=== PATIENT | male | born 1985 ===

== ENCOUNTER 2018-02-20 15:54 | Emergency (ER) | payer SELFPAY ==
[2018-02-20 16:05] VITALS: BMI 29.9
[2018-02-20 16:06] VITALS: RESP 18; TEMP 99; O2SAT 98
[2018-02-20] MEDS ORDERED: Tetanus/Diphtheria Toxoids 0.5 ml Syringe IM ONE ×2 (16:22→16:35)
[2018-02-20] MEDS ORDERED: Oxycodone/Acetaminophen 5/325 mg Tab PO STA (16:22)
[2018-02-20] MEDS ORDERED: Oxycodone/Acetaminophen 5/325 mg Tab ONE (16:35)
--- NOTE | 2018-02-20 16:37 | RAD ---
Date of service: 02/20/2018 PROCEDURE: Right Thumb radiographs. HISTORY: RIGHT THUMB INJURY COMPARISON: None. TECHNIQUE: AP radiograph of the right hand, as well as spot oblique and lateral images of thumb were obtained. FINDINGS: RIGHT THUMB: Nondisplaced fracture of the 1st distal phalanx tuft. JOINTS: Normal. SOFT TISSUES: Distal 1st digit soft tissue laceration. OTHER FINDINGS: None. IMPRESSION: Distal 1st digit soft tissue laceration with distal phalanx tuft nondisplaced fracture.
[2018-02-20] MEDS ORDERED: Piperacillin/Tazobact 3.375 gm 100 ML IV STA (16:40)
--- NOTE | 2018-02-20 16:40 | C.PDOC ---
History Of Present Illness 32 year old male presents to the ER after he cut off the tip of his right thumb while cutting a green plantain at home with a knife. Patient did not bring the tip of the thumb with him. He is currently c/o pain to the area. Patient denies sensory changes, decerased ROM of thumb, any other injuries. Tetanus vaccination status is unknown. Time Seen by Provider: 02/20/18 15:57 Chief Complaint (Nursing): Abnormal Skin Integrity History Per: Patient History/Exam Limitations: no limitations Onset/Duration Of Symptoms: Hrs Current Symptoms Are (Timing): Still Present Location Of Injury: Right: Hand Quality Of Symptoms: Other (Cut off tip of thumb) Severity: Mild Recent travel outside of the [place]: No Past Medical History Reviewed: Historical Data, Nursing Documentation, Vital Signs Vital Signs: Last Vital Signs Temp 99 F 02/20/18 16:05 Pulse 62 02/20/18 18:14 Resp 18 02/20/18 18:14 BP 138/73 02/20/18 18:14 Pulse Ox 98 02/20/18 19:31 - Medical History PMH: No Chronic Diseases Family History: States: No Known Family Hx - Social History Hx Alcohol Use: No Hx Substance Use: Yes - Immunization History Hx Tetanus Toxoid Vaccination: No Hx Influenza Vaccination: No Hx Pneumococcal Vaccination: No Review Of Systems Constitutional: Negative for: Fever, Chills Cardiovascular: Negative for: Chest Pain Respiratory: Negative for: Shortness of Breath Musculoskeletal: Positive for: Hand Pain, Other (Cut off tip of right thumb) Skin: Negative for: Rash Neurological: Negative for: Weakness, Numbness Physical Exam - Physical Exam Appears: Well, Non-toxic Skin: Normal Color, Warm, Dry, No Rash Head: Normacephalic Eye(s): bilateral: Normal Inspection Oral Mucosa: Moist Cardiovascular: Rhythm Regular Respiratory: Normal Breath Sounds, No Rales, No Rhonchi, No Wheezing Extremity: Normal ROM (all digits ), Capillary Refill (<2 seconds all digits ), No Deformity, Other (Medial aspect of distal right thumb with 2cm skin and nail avulsion, no visualized bone) Pulses: Left Radial: Normal, Right Radial: Normal Neurological/Psych: Oriented x3, Normal Motor, Normal Sensation ED Course And Treatment O2 Sat by Pulse Oximetry: 98 (Room air) Pulse Ox Interpretation: Normal - Other Rad Right thumb x-ray X-Ray: Interpreted by Me, Viewed By Me Interpretation: Distal thumb tuft fracture Progress Note: Xray of right thumb ordered and reviewed - (+) for distal tuft fracture. Patient given 1 dose IV Zosyn in ED. Bacitracin applied to distal finger + nonocclusive vaseline dressing and gauze, as well as distal thumb splint (by me). Patient given IM tetanus vaccination, PO Percocet. Rx for Augmentin given, and patient instructed to follow up with hand surgeon in 1-2 days without fail. He was also instructed to return in 48 hrs for wound check and dressing change. Patient understands he should return sooner if he has any concerning symptoms. Reevaluation Time: 17:50 Reassessment Condition: Improved Disposition Counseled Patient/Family Regarding: Studies Performed, Diagnosis, Need For Followup, Rx Given - Disposition Referrals: Jocelyne Shearer MD [Staff Provider] - 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 SE INDICA Prescriptions: Acetaminophen with Codeine [Tylenol with Codeine #3 Tablet] 1 each PO Q6 PRN # 12 tablet PRN Reason: pain Amoxicillin/Clavulanate [Augmentin 875 MG-125 MG] 1 tab PO BID #14 tab Naproxen 375 mg PO BID PRN #20 tablet PRN Reason: pain Instructions: Finger Fracture (DC) Forms: [employer] (Swedish) Print Language: IRISH - Clinical Impression Clinical Impression: Avulsion of skin of finger, Open fracture of tuft of distal phalanx of finger - Scribe Statement The provider has reviewed the documentation as recorded by the Scribeloise Bennett All medical record entries made by the Scribe were at my direction and personally dictated by me. I have reviewed the chart and agree that the record accurately reflects my personal performance of the history, physical exam, medical decision making, and the department course for this patient. I have also personally directed, reviewed, and agree with the discharge instructions and disposition.
[2018-02-20] MEDS ORDERED: Bacitracin 500 Units/gm Oint Foilpak UD TOP ONE (16:41)
[2018-02-20] MEDS ORDERED: Piperacillin/Tazobact 3.375 gm 100 ML IVPB ONE (16:55)
[2018-02-20] MEDS ORDERED: Bacitracin 500 Units/gm Oint Foilpak UD ONE (17:01)
[2018-02-20 18:15] VITALS: BP 138/73; PULSE 62
== END 2018-02-20 18:15 | disposition home or self-care (01) ==
LOC: C.ER 15:54
DX: S62.524B Nondisplaced fracture of distal phalanx of right thumb, initial encounter for open fracture (principal); S61.001A Unspecified open wound of right thumb without damage to nail, initial encounter; W26.0XXA Contact with knife, initial encounter; Y92.009 Unspecified place in unspecified non-institutional (private) residence as the place of occurrence of the external cause
CPT/HCPCS: 29130; 73140; 90471; 90714; 96360; 99284; J2543